=== PATIENT | female | born 1955 | race Caucasian/White ===

== ENCOUNTER 2018-02-26 08:52 | Emergency (ER) | payer OTHER ==
[~2018-02-26] VITALS: Ht 167.6 cm; Wt 80.5 kg
[2018-02-26 08:55] VITALS: BP 164/71; PULSE 60; RESP 20; Ht 167.6 cm; Wt 80.5 kg
[2018-02-26] MEDS ORDERED: BUPIVACAINE 0.25% (MPF) 10 ML 10 ML VIAL INJ ONE (10:00)
--- NOTE | 2018-02-26 10:01 | ERD ---
ER Documentation Chief Complaint Chief Complaint Complains of severe back pain x 2 months worse these 2 days HPI 62-year-old female complaining of right mid back pain. Patient states that she had similar back pain for 4-5 months, but it got worse in the last 2 days. The pain is worse with movement. She took 600 mg ibuprofen yesterday with no relief, she did not take any pain medications today. Patient has a appointment with her PCP in 2 days, but could not wait because of the pain. Denies fall or any other injury. Denies dysuria. Denies fever or chills. ROS All systems reviewed and are negative except as per history of present illness. Medications Home Meds Active Scripts Methocarbamol* (Robaxin*) 750 Mg Tablet, 750 MG PO Q6H PRN for MUSCLE SPASMS, #20 TAB Prov:AVINASH ORTEZ. LINE LEAD 02/26/18 Ibuprofen* (Motrin*) 600 Mg Tab, 600 MG PO Q6H PRN for PAIN AND OR ELEVATED TEMP, #30 TAB Prov:AVINASH ORTEZ. LINE LEAD 02/26/18 Allergies Allergies: Coded Allergies: Penicillins (Verified Allergy, Intermediate, 02/26/18) codeine (Verified Allergy, Intermediate, 02/26/18) PMhx/Soc History of Surgery: Yes (HYSTERECTOMY ) Hx Alcohol Use: No Hx Substance Use: No Hx Tobacco Use: No Smoking Status: Never smoker Physical Exam Vitals Vital Signs Date Temp Pulse Resp B/P (MAP) Pulse Ox O2 O2 Flow FiO2 Time Delivery Rate 02/26/18 97.4 60 20 164/71 99 08:55 (102) Physical Exam General: Well-developed, well-nourished, conscious and coherent, in no distress Skin: Warm and dry without rash, good texture and turgor Head: Normocephalic without evidence of trauma Neck: Supple without meningismus or adenopathy. Carotids are equal. Trachea midline. No bruits or JVD Chest: Normal AP diameter. Good expansion without retractions. Nontender. Lungs are clear to auscultate bilaterally with good tidal volume Heart: Regular rate and rhythm. No murmur, rub, or gallops heard Abdomen: Soft and nontender without masses, guarding, or rebound. Bowel sounds are active. No hepatosplenomegaly Back: Without spinal or CVA tenderness. Right paraspinal muscle spasm in the mid back. Extremities: Full range of motion. Good strength bilaterally. No erythema, ecchymosis, or edema. Peripheral pulses are intact. Sensation intact Neuro: Alert and oriented 4, GCS 15. Results 24 hrs Laboratory Tests Test 02/26/18 10:25 Bedside Urine pH (LAB) 6.5 Bedside Urine Protein (LAB) Negative Bedside Urine Glucose (UA) Negative Bedside Urine Ketones (LAB) Negative Bedside Urine Blood Trace-intact Bedside Urine Nitrite (LAB) Negative Bedside Urine Leukocyte Esterase (L Trace Current Medications Medications Dose Sig/Leroy Start Time Status Last (Trade) Ordered Route PRN Stop Time Admin Dose Reason Admin Bupivacaine 10 ml ONCE ONCE 02/26/18 DC HCl INJ 10:00 (Marcaine 02/26/18 10:01 0.25% (Mpf) 10 ml) Bupivacaine 1 ml ONCE INJ 02/26/18 DC HCl/ 10:30 Epinephrine 02/26/18 10:31 Bitart (Marcaine 0.25%/ Epi (Sdv) 30 ml) Procedures/MDM Patient presents with right-sided back pain for several months, that is worse in the last 2 days. Patient does not have any midline spinal tenderness. I doubt spinal fracture, subluxation, or disc herniation. I doubt spinal epidural abscess, cauda equina syndrome. Patient noted to have muscle spasm at the site of pain, likely that is the cause. Procedure note: Trigger point injection Trigger point injection performed by me. 10 mL of bupivacaine is injected into right mid paraspinal muscle. Total number muscle groups injected: 1. Patient reports improvement of pain after the trigger point injection. UA showed trace leukocyte and trace blood. I doubt UTI. Patient symptoms are not consistent with nephrolithiasis or urolithiasis. Patient appears well, stable for discharge and outpatient management. Medical decision making shared with patient and family. Education provided to patient and family. Patient and family expressed understanding of the plan. Medications on discharge: Ibuprofen, Robaxin. Follow-up: Primary care provider in 2-3 days or return to ED if worse. Disclaimer: Inadvertent spelling and grammatical errors are likely due to EHR/dictation software use and do not reflect on the overall quality of patient care. Also, please note that the electronic time recorded on this note does not necessarily reflect the actual time of the patient encounter. Departure Diagnosis: Primary Impression: Back spasm Condition: Stable AVINASH ORTEZ NP Feb 26, 2018 10:01
[2018-02-26] MEDS ORDERED: BUPIVACAINE 0.25%/EPI (SDV) 30 ML INJ INJ SCH (10:30)
[2018-02-26] MEDS ORDERED: IBUP-1542 PO (10:35)
[2018-02-26] MEDS ORDERED: METH750T93 PO (10:35)
== END 2018-02-26 11:07 | disposition home or self-care (01) ==
LOC: FTE 08:52
DX: M62.830 Muscle spasm of back (principal); R40.2412 Glasgow coma scale score 13-15, at arrival to emergency department
CPT/HCPCS: 20552; 81003; Z7502; Z7610